=== PATIENT | male | born 2000 | race Caucasian/White ===

== ENCOUNTER 2022-10-02 11:26 | Emergency (ER) | payer BC, SELFPAY ==
[2022-10-02 11:47] VITALS: BP 115/70; PULSE 88; RESP 16; TEMP 36.6; O2SAT 96; BMI 30.6
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
--- NOTE | 2022-10-02 14:29 | DCPLANNER ---
Addendum entered by Kika Prescott 10/12/22 10:00: Patient attended appointment scheduled with ENT Addendum entered by Kika Prescott 10/04/22 08:38: Patient has a follow up appointment scheduled for Thursday, October 06, 2022 at 10:[address] Bethea at [facility]NT. Original Note: proposal manager writer had message to schedule a follow up appointment for patient with ENT. proposal manager writer sent patients information to the front office staff at ENT. Patients information will be printed and reviewed. Clinic will call patient with appointment information.
--- NOTE | 2022-10-02 14:31 | DCPLANNER ---
Addendum entered by Kika Prescott 10/16/22 13:54: repair department manager received the following message from the neurology clinic regarding follow up appointment: I am waiting to find out when the MRI is scheduled. Dr dumont wants that done before he sees him. Original Note: repair department manager had message to schedule a follow up appointment for patient with neurology. repair department manager sent patients information to the front office staff at neurology. Patients information will be printed and reviewed. Clinic will call patient with appointment information.
--- NOTE | 2022-10-02 15:21 | DCPLANNER ---
manager r d called patient due to no primary care physician - patient declines at this time.
--- NOTE | 2022-10-03 11:20 | DCPLANNER ---
Addendum entered by Kika Prescott 10/16/22 13:55: wireless sales manager received the following message from centralized scheduling regarding follow up appointment: This patient?s insurance does not cover having this test here, they were going to try to get it elsewhere. Original Note: wireless sales manager had message to schedule an out patient MRI for patient. wireless sales manager faxed signed order to centralized scheduling who will call patient with appointment information.
== END 2022-10-02 13:51 | disposition home or self-care (01) ==
PROVIDERS: Emergency Provider Physician Assistant
DX: R20.0 Anesthesia of skin (principal)
CPT/HCPCS: 99282